=== PATIENT | male | born 1995 | race Two or more races ===

== ENCOUNTER → 2020-11-10 | Outpatient (CLI) | payer BC ==
[2020-11-10 08:34] LABS: Basophils # (auto) 0 10 ^3/uL (0-0.2); Basophils % (auto) 0.8 % (0.0-2.0); Eosinophils # (auto) 0.3 10 ^3/uL (0-0.8); Eosinophils % (auto) 3.8 % (0.0-7.0); Hematocrit 48.7 % (41.0-53.0); Hemoglobin 16.5 g/dL (13.5-17.5); Lymphocytes % (auto) 30.9 % (10.0-50.0); Mean Corpuscular Hemoglobin 29.1 pg (28.0-32.0); Mean Corpuscular Hgb Conc. 33.9 g/dL (32.0-36.0); Mean Corpuscular Volume 85.9 fL (80.0-100.0); Monocytes # (auto) 0.4 10 ^3/uL (0-1.3); Monocytes % (auto) 5.6 % (0.0-12.0); Neutrophils # (auto) 3.9 10 ^3/uL (1.6-8.6); Neutrophils % (auto) 58.9 % (37.0-80.0); Nucleated Red Blood Cells % 0.1 %; Platelet Count (auto) 289 10^3/uL (140-450); Red Blood Cells 5.67 10^6/uL (4.5-5.90); Red Cell Distribution Width 13.5 % (11.8-14.3); White Blood Cell 6.6 10^3/uL (4.4-10.8)
[2020-11-10 08:39] LABS: Urine Bacteria FEW /hpf (None Seen); Urine Blood Negative /uL (Negative); Urine Specific Gravity 1.014 (1.001-1.035); Urine WBC <1 /hpf (0 - 3)
[2020-11-10 09:02] LABS: Albumin 4.2 g/dL (3.4-5.0); Potassium 4.2 mmol/L (3.5-5.1)
[2020-11-10 09:12] LABS: BUN/Creatinine Ratio 18.3; Bilirubin, Total 0.5 mg/dL (0.2-1.0); Total Protein 8.1 g/dL (6.4-8.2)
== END | disposition home or self-care (01) ==
LOC: LAB 08:14
PROVIDERS: ATTEND Internal Medicine
DX: R53.83 Other fatigue (principal); D16.9 Benign neoplasm of bone and articular cartilage, unspecified
CPT/HCPCS: 36415; 80053; 80061; 81001; 84439; 84443; 85025; 85652